=== PATIENT | female | born 1985 | race Caucasian/White ===

== ENCOUNTER 2025-02-21 11:12 | Emergency (ER) | payer OTHER, SELFPAY ==
[2025-02-21 11:18] VITALS: BP 151/106; PULSE 88; RESP 20; TEMP 37; O2SAT 100
--- OUTSIDE RECORDS SUMMARY | 2025-02-21 12:05 | XMS_ITS | Clinical Summary ---
Author Organization [facility] Address [address] [place] [address] Phone Care Team Providers Care Career Manager Name Role Phone Cristela Mendoza APRN, PRIMARY CARE PEDIATRICIAN Primary Care Provider + Allergies No known active allergies Medications metFORMIN (GLUCOPHAGE) 500 MG Tablet Take 500 mg by mouth 2 times daily (with meals). Active lisinopril (PRINIVIL, ZESTRIL) 10 MG Tablet Take 10 mg by mouth daily. Active ATORVASTATIN CALCIUM PO Take by mouth. Active Phentermine HCl 37.5 MG Tablet Take 37.5 mg by mouth every morning (before breakfast). Active Social History Tobacco Use Types Packs/Day Years Used Date Smoking Tobacco: Former Cigarettes Comments No Sex and Gender Information Value Date Recorded Sex Assigned at Not on file Legal Sex Female 11:27 PM CDT Gender Identity Not on file Sexual Orientation Not on file Last Filed Vital Signs Vital Sign Reading Time Taken Comments Blood Pressure 131/81 01/08/2016 6:16 PM CDT Pulse 136 01/08/2016 6:16 PM CDT Temperature 36.4 C (97.6 F) 01/08/2016 6:16 PM CDT Respiratory Rate - - Oxygen Saturation 95% 01/08/2016 6:16 PM CDT room air Inhaled Oxygen Concentration - - Weight 109.8 kg (242 lb) 01/08/2016 6:16 PM CDT Height 160 cm (5' 3 ) 01/08/2016 6:16 PM CDT Body Mass Index 42.87 01/08/2016 6:16 PM CDT Plan of Treatment Health Maintenance Due Date Last Done Comments Hepatitis C Virus (HCV) Screening 1984 TdaP Immunization 1984 Hepatitis B Immunization (1 of 3 - 19+ 3-dose series) 2003 Pap Smear 2005 Cervical Cancer Screening (CCS) 2014 HPV/Cotest 2014 Influenza Immunization (#1) 2024 SARS-COV-2 Immunization ( season) 2024 Discussion re Starting/Frequ ency of Mammograms 2024 Respiratory Syncytial Virus (RSV) Immunization (Adult) (1 - 1-dose 75+ series) 2059 Meningococcal Immunization (ACWY) Aged Out No longer eligible based on patient's age to complete this topic Pneumococcal Immunization Combined Aged Out No longer eligible based on patient's age to complete this topic Rotavirus Immunization Aged Out No lo nger eligible based on patient's age to complete this topic Insurance MEDICAID [employer] Care Teams Career Manager Relationship Specialty Start Date End Date Cristela Mendoza, ACCOUNT SERVICES SPECIALIST, PRIMARY CARE PEDIATRICIAN [address] [phone] PCP - General Advanced Practice Nurse 08/28/15
--- OUTSIDE RECORDS SUMMARY | 2025-02-21 12:05 | XMS_ITS | Continuity of Care Document ---
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 Professional No Information [address] [facility] [facility] [place] [id number], [place]. tel:[phone] Referring Provider: Lit Camargo [address] [place], [address] . tel:[phone] Family History Family Member Type Diagnosis Age At Onset No Information Payers Payer name Insurance type Covered republican ID Authorjessicaa titatiana(s) Medicaid [facility] [id number] Social History Type Description Quantity Date Captured Comments Sex Female Smoking Status No Information Chief Complaint And Reason For Visit No Information Reason For Referral Reason For Referral No Information History Of Present Illness Encounter Date Complaint History Of Prese nt Illness No Information Functional Status Date Functional Assessmen t No Information Instructions Date Instruction Additional Infor mation No Information Assessments Type Assessment Date No Information Patient Care Teams Name Effective Dates (start - stop) Status Members No Information
--- OUTSIDE RECORDS SUMMARY | 2025-02-21 12:05 | XMS_ITS | Data Portability ---
[facility] Address [address] [place] [address] Care Team Providers Care Manager Child Name Role Phone SHIRLENEMAGALY Orthopedic Surgeon JUANA ARSLAN OTHER PIETER GROVES Primary Care Provider [phone] Assessment No assessment recorded. Plan of Treatment Reminders Order Date Submit Date Provider Last Modified By Organization Details Last Modified Time Details Appointments None recorded . Lab PPD (purifie d protein derivati ve), skin test 2016 017 TIMOTHY In-Office Order, Internal Use Only DO Not Attach Compendium DO Not Attach Compendium, Do Not Delete/merge, [id number] 10:26:05 PPD (purifie d protein derivati ve), skin test 2016 017 TIMOTHY In-Office Order, Internal Use Only DO Not Attach Compendium DO Not Attach Compendium, Do Not Delete/merge, [id number] 10:06:29 vzv (varicel la-zoste r) igg+igm Ab, serum 2016 017 [facility], [address] [facility] [address], [address], 7 10:24:57 Referral None recorded . Procedures None recorded . Surgeries None recorded . Imaging None recorded . Medication Orders Tubersol 5 tub. unit/0.1 mL intrader mal injectio n solution 2016 017 [facility] [place], [address], [place], [address], 7 10:02:10 Tubersol 5 tub. unit/0.1 mL intrader mal injectio n solution 2016 017 ccampbellma Not available 10:02:10 phenterm ine 37.5 mg tablet 2016 017 [facility] [place], [facility] [address], [place], [address], 7 10:24:11 Patient TargetsNo targets recorded. Patient Instructions Encounter Date Encounter Id Patient Instructions Last Modified By Organization Details Last Modified Time 07/30/2017 [id number] Follow a well balanced diet using the USDA food guide pyramid. Start an exercise regimen that includes aerobic exercise for at least 30 minutes, 4 times a week. Do not severly restrict your diet. Healthy weight loss is 1-2 pounds per week. Recommended [employer]ODUCER f/u. Not available 07/30/2017 11:08:01 f/u 1 month to evaluate. Not available 07/30/2017 11:07:36 09/01/2017 [id number] Maintain a healthy weight. Avoid smoking. Participate in regular aerobic exercise (at least 30 minutes 4 days a week) Take medications as prescribed. Follow the DASH diet. Restrict sodium (less than 2000mg per day) Try to manage stress. Restrict alcohol consumption Follow a well balanced diet using the USDA food guide pyramid. Start an exercise regimen that includes aerobic exercise for at least 30 minutes, 4 times a week. Do not severly restrict your diet. Healthy weight loss is 1-2 pounds per week. Not available 09/01/2017 10:24:26 f/u 1 month. Not available 10:24:31 10/02/2017 [id number] When You Want to Lose Weight: Care Instructions [email or web address] Not available 10/02/2017 10:43:20 Follow a well balanced diet using the USDA food guide pyramid. Start an exercise regimen that includes aerobic exercise for at least 30 minutes, 4 times a week. Do not severly restrict your diet. Healthy weight loss is 1-2 pounds per week. Not available 10/02/2017 10:37:04 f/u 3 months. Not available 10:37:08 Reason for Referral None Reported. Results Created Date Observation Date Name Description Value Unit Range Abnormal Flag Note LastModifiedBy Organization Detail LastModifiedTime 09/29/20 17 10/01/2017 PPD (ashleigh fied prote in deriv ative ), skin test Result Negati ve Not Available In-Office Order Internal Use Only DO Not Attach Compendium DO Not Attach Compendium, Do Not Delete/merge, [id number] 09/29/2017 10:24:04 09/01/20 17 09/05/2017 PPD (ashleigh fied prote in deriv ative ), skin test Result NOT READ Not Available In-Office Order Internal Use Only DO Not Attach Compendium DO Not Attach Compendium, Do Not Delete/merge, [id number] 09/01/2017 10:08:02 Result Notes None recorded. Problems Name Problem SNOMED Code Status Onset Date Resolution Date Notes Provider Name and Address Organization Details Recorded Time Overweight 292681138 Active 2016 PIETER GROVES NP Attn: Carlos garcia,[address] [place], [address] [place] [facility] 7 10:36:55 Diabetes mellitus 67716916 Active Type 2 Priscilla White null, [place] - [facility] 6 17:25:47 Essential hypertension 41289272 Active Carlene Campos [place], [place] [facility] 6 11:26:22 Tobacco dependence syndrome 47633020 Active Carlene Campos [place], [place] [facility] 6 11:26:22 Morbid obesity 415923794 Active Carlene Campos [place], [place] [facility] 6 11:26:22 Skin lesion 27224359 Active EDWARD Mclean, [place] - [facility] 6 11:26:22 Migraine 92937219 Active EDWARD M[place], [place] - [facility] 6 11:26:22 Sleep disorder 48734310 Active 2014 MARCIN - CPap EDWARD M[place], [place] - [facility] 6 11:26:22 Injury of lower limb 190535692 Active EDWARD Mclean, [place] - [facility] 6 11:26:22 Anxiety 34034592 Active EDWARD Mclean, [place] - [facility] 6 11:26:22 Acute sciatica 791278308 Active EDWARD Mclean, [place] - [facility] 6 11:26:22 Candidiasis of skin 48226756 Active EDWARD Mclean, [place] - [facility] 6 11:26:22 Acute bronchitis 10252545 Active EDWARD M[place], [place] - [facility] 6 11:26:22 Hip joint painful on movement 386390503 Active EDWARD Mclean, - [facility] 6 11:26:22 Neuropathy 411474337 Active EDWARD Mclean, [place] - [facility] 6 11:26:22 Chronic back pain 566962209 Active EDWARD Mclean, - [facility] 6 11:26:22 Gastroesophage al reflux disease 950664086 Active EDWARD Mclean, [place] - [facility] 6 11:26:22 Hypercholester olemia 47167670 Active EDWARD Mclean, [place] - [facility] 6 11:26:22 Constipation 53192216 Active 2015 Priscilla Bartolojuanjo shivam, [place] - [facility] 6 17:25:14 Notes:No diuretics during pe rioperative phase (May?) preferred beta blockers and direct vasodilators 06/11/16 Laparoscopic sleeve gastredtomy with laparoscopic hiatal hernia repair with bio a mesh placement by Dr. Lieberman. Advised on diet, vitamins, supplements, exercise and support program. Problem Notes None recorded. Procedures Surgical History Date Name Laterality Status Provider Name and Address Organization Details Recorded Time Tonsillectomy completed KHUSHBU Rader [facility] 01/23/2015 09:54:42 Imaging Results None recorded. Procedure Notes None recorded. Medical Equipment None Reported. Allergies Allergen ID Allergen Name Allergen Category Reaction Reaction Severity Criticality Documentation Date Start Date Code Code System Note Provider Name and Address Organization Details Recorded Time 54413 Product containin g penicilli n (product) medicatio n hives Not available Not available 01/23/2015 53627 8001 SNOMED diffi culty aracely ralph RN [facility], [place] - [facility] 5 09:51:27 Medications Name Sig Start Date Stop Date Status Note LastModified by Organization Details LastModified Time Prescriptio n - Renewal 10/02 completed Not Available Not Available Not Available Prescriptio n - New 10/02 completed Not Available Not Available Not Available Prescriptio n - Prior Authorizati on Request active Not Available Not Available N ot Available ketoconazol e (bulk) powder Use a thin layer in affected areas which are moist and dark twice a day by topical route. 2014 active Not Available Not Available Not Avai lable bupropion HCl SR 150 mg tablet,12 hr sustained-r elease Take 1 tablet twice a day by oral route 1 with breakfast and 1 with lunch every day. active Not Available Not Available No t Available prednisone 10 mg tablet active Not Available Not Available Not Available nicotine 14 mg/24 hr daily transdermal patch Apply 1 patch every day by transderm al route. 10/22 completed Not Available Not Available Not Available atorvastati n 10 mg tablet TAKE ONE TABLET BY MOUTH EVERY DAY 10/22 completed Not Available Not Available Not Available azithromyci n 250 mg tablet 10/22 completed Not Available Not Available Not Available sumatriptan 100 mg tablet Take 1 tablet as needed by oral route at onset of WORKMAN may repeat after 2 hrs ; 2 tabs max in 24hours. active Not Available Not Available No t Available hydrocodone 5 mg-acetamin ophen 325 mg tablet 07/30 completed Not Available Not Available Not Available Ativan 1 mg tablet Take 1 to 2 tabs by oral route 30 minutes prior to MRI procedure . 2014 active Not Available Not Available Not Avai lable ondansetron HCl 4 mg tablet 10/22 completed Not Available Not Available Not Available prednisone 20 mg tablet Take by oral route with food - one with breakfast and one with lunch - cut back to one a day if blood sugar over 250 2014 active Not Available Not Available Not Avai lable Tubersol 5 tub. unit/0.1 mL intradermal injection solution Administe r .1ml interderm ally 10/02 completed Not Available Not Available Not Available phentermine 37.5 mg tablet Take 1 tablet(s) every day by oral route. active Not Available Not Available No t Available ciprofloxac in 500 mg tablet 07/30 completed Not Available Not Available Not Available triamcinolo ne acetonide 0.1 % topical cream active Not Available Not Available Not Available oxycodone-a cetaminophe n 5 mg-325 mg tablet active Not Available Not Available No t Available lancets active Not Available Not Avail able Not Available Humalog U-100 Insulin 100 unit/mL subcutaneou s solution 10/22 completed Not Available Not Available Not Available nystatin 100,000 unit/gram topical cream APPLY TO THE AFFECTED AREA(S) BY TOPICAL ROUTE 2 TIMES PER DAY 07/30 completed Not Available Not Available Not Available lisinopril 10 mg tablet TAKE ONE TABLET BY MOUTH EVERY DAY 10/22 completed Not Available Not Available Not Available naproxen 500 mg tablet,samantha yed release TAKE ONE TABLET BY MOUTH TWO TIMES A DAY WITH MEALS 10/22 completed Not Available Not Available Not Available ursodiol 300 mg capsule Take one capsule po bid 07/30 completed Not Available Not Available Not Available nicotine 21 mg/24 hr daily transdermal patch Apply 1 patch every day by transderm al route. 2015 active Not Available Not Available Not Avai lable gabapentin 300 mg capsule Take 1 capsule(s ) every day at bedtime till well-tole rated then add a 2nd cap a day and increase to 3 caps every days by oral route. 07/30 completed Not Available Not Available Not Available omeprazole 20 mg capsule,del ayed release Take one capsule bid active Not Available Not Available No t Available hydroxyzine HCl 25 mg tablet active Not Available Not Available Not Available insulin syringe U-100 with needle 1 mL 30 gauge x 05/04 completed Not Available Not Available Not Available timolol maleate 0.5 % eye drops active Not Available Not Available Not Available ketoconazol e 2 % topical cream USE A THIN LAYER IN AFFECTED AREAS WHICH ARE MOIST AND DARK TWICE A DAY BY TOPICAL ROUTE. active Not Available Not Available No t Available fluticasone propionate 50 mcg/actuati on nasal spray,suspe nsion 10/22 completed Not Available Not Available Not Available metformin ER 500 mg tablet,exte nded release 24 hr Take 2 tablets twice a day by oral route with meals for 30 days. 10/22 completed Not Available Not Available Not Available clotrimazol e 1 % topical cream APPLY TO AFFECTED AREA(S) TWO TIMES A DAY TO CLEAN AND DRY SKIN FOR 28 DAYS active Not Available Not Available No t Available naproxen 500 mg tablet active Not Available Not Available Not Available dorzolamide 2 % eye drops active Not Available Not Available Not Available nicotine 7 mg/24 hr daily transdermal patch active Not Available Not Available Not Available Ventolin HFA 90 mcg/actuati on aerosol inhaler Inhale 2 puffs every 4-6 hours by inhalatio n route as needed. 10/22 completed Not Available Not Available Not Available azithromyci n 500 mg tablet active Not Available Not Available Not Available OneTouch Verio test strips 2014 active Not Available Not Available Not Avai lable OneTouch Delica Lancets 30 gauge active Not Available Not Available Not Available Multi Vitamin 1 PO QD active Not Available Not Available Not Available Vitals Date Recorded Body height Provider Name an d Address Organization Details Last Updated DateTime 09/29/2017 162.56 cm Berta Yarbrough [facility] 2016 10:23:18 Date Recorded Body height Body mass index (BMI) Body weight Oxygen saturation Oxygen saturation in Arterial blood by Pulse oximetry Heart rate Systolic blood pressure Diastolic blood pressure Provider Name and Address Organization Details Last Updated DateTime 7 162.56 cm 26.8 kg/m2 49796.8 1 g 98 % 98 % 91 /min 136 mm[Hg] 78 mm[Hg] Berta Yarbrough MA [facility] 7 10:04:08 Date Recorded Body height Provider Name an d Address Organization Details Last Updated DateTime 05/01/2017 160.02 cm Priscilla White [facility] 05/01/2017 09:56:49 Date Recorded Body height Body mass index (BMI) Body weight Oxygen saturation Oxygen saturation in Arterial blood by Pulse oximetry Heart rate Systolic blood pressure Diastolic blood pressure Provider Name and Address Organization Details Last Updated DateTime 160.02 cm 28.6 kg/m2 94817.1 7 g 100 % 100 % 87 /min 134 mm[Hg] 88 mm[Hg] Berta Yarbrough MA [facility] 7 09:54:39 Date Recorded Body height Body mass index (BMI) Body weight Oxygen saturation Oxygen saturation in Arterial blood by Pulse oximetry Heart rate Systolic blood pressure Diastolic blood pressure Provider Name and Address Organization Details Last Updated DateTime 7 162.56 cm 26.8 kg/m2 71259.4 1 g 99 % 99 % 91 /min 126 mm[Hg] 84 mm[Hg] Carlene Campos MA [facility] 7 09:56:41 Social History Question Answer Notes LastModified by Organizat ion Details LastModified Time Tobacco Smoking Status Former Smoker Quit 12-19-15 Carlene Campos MA [facility] 01/01/2016 10:07:03 What Is Your Level Of Alcohol Consumption? None [email or web address] Information not available 01/23/2015 What Is Your Level Of Caffeine Consumption? Occasional Information not available 06/30/2015 How Much Tobacco Do You Chew? None Information not available 06/30/2015 Are You Currently Employed? No Information not available 06/30/2015 What Type Of Diet Are You Following? SPECIFIC Weight [employer] Information not available 06/30/2015 Which Illicit Or Recreational Drugs Have You Used? None Information not available 06/30/2015 Are There Any Guns Present In Your Home? No Information not available 06/30/2015 What Was The Date Of Your Most Recent Tobacco Screening? 09/01/2017 Information not available 05/13/2019 How Many Children Do You Have? 2 Information not available 06/30/2015 Seat Belts Used Routinely Yes Information not available 06/30/2015 Smoke Alarm In Home Yes Information not available 06/30/2015 At What Age Did You Start Smoking Tobacco? 15 Information not available 06/30/2015 How Much Tobacco Do You Smoke? No rreiter Information not available 01/01/2016 General Stress Level Medium Information not available 06/30/2015 Do You Use Sunscreen Routinely? No Information not available 06/30/2015 How Many Years Have You Smoked Tobacco? 15 [email or web address] Information not available 01/23/2015 Sex: Unknown Functional Status Question Answer Note LastModified by Organizat ion Details LastModified Time Are you able to care for yourself? Yes Information not available 06/30/2015 What is your exercise level? Occasional Information not available 06/30/2015 Mental Status None recorded. Family History Relationship Description Onset Age of this Age Resolved Age Notes LastModified by Organization Details LastModified Time Mother Disorder of thyroid gland rreiter Not available 2015 12:18:34 Mother Hypertensive disorder rreiter Not available 2015 12:18:34 Father Cerebrovascu lar accident rreiter Not available 12:18:34 Medical History Condition Response Diabetes Y Obesity Y High Blood Pressure Y Constipation Y Sleep Apnea Y GERD/Reflux Y High Cholesterol Y COPD Y Asthma Y Gynecological History Statement/Question Response Current Control Method IUD Obstetrics History GPAL:G 0 P 0 0 0 0 Immunizations Vaccine Type Date Status Note Provider Nam e and Address Organization Details Recorded Time Influenza, split virus, quadrivalent, preservative 7 completed Not Available [facility] 11/06/2019 02:33:02 Hep B, adult 7 completed Not Available [facility] 11/06/2019 02:33:52 Hep B, adult 7 completed Not Available [facility] 11/06/2019 02:33:52 Hep B, adult 7 completed Not Available [facility] 11/06/2019 02:45:29 Influenza, split virus, quadrivalent, PF 7 completed Not Available [facility] 11/06/2019 02:34:22 Tdap 7 completed Not Available [facility] 11/06/2019 02:46:09 Influenza, split virus, quadrivalent, PF 5 completed Not Available [facility] 11/06/2019 02:32:08 Past Encounters Encounter ID Performer Location Encounter Start Date Encounter Closed Date Diagnosis/Indication Diagnosis SNOMED-CT Code Diagnosis ICD10 Code Diagnosis Note [id number] STEPHANIE Owen-ADAMS [facility] [address] [place] [address] 01/23/2015 09:43:03 01/24/2015 14:08:16 Diabetes mellitus 45438100 Essential hypertension 82306009 Tobacco de pendence syndrome 00184026 Morbid obesity 513779854 Skin lesion 31876850 rig ht forehead [id number] Cristela Reji [facility] [address] [place] [address] 02/24/2015 09:36:37 03/08/2015 14:00:05 Essential hypertension 54551530 Diabetes mellitus 58098071 Migraine 13103881 Sleep disorder 99361923 Morbid obesity 244589974 [id number] Cristela Mendoza [facility] [address] [place] [address] 04/28/2015 09:49:30 05/03/2015 17:13:28 Diabetes mellitus 00999836 Essential hypertension 24150858 Morbid obesity 025154684 [id number] Igor Elliott MD [facility] [address] [place] [address] 05/29/2015 09:52:42 05/30/2015 12:08:57 Injury of lower limb 482837411 left lower leg injury Impaired mobility 53140637 Morbid obesity 688253652 [id number] Igor Elliott MD [facility] [address] [place] [address] 06/30/2015 09:45:42 07/05/2015 13:09:16 Diabetes mellitus 49192870 Morbid obesity 407893667 Injury of lower limb 272577647 left lower leg injury - improving [id number] Cristela Mendoza [facility] [address] [place] [address] 07/28/2015 09:41:23 08/01/2015 11:24:07 Diabetes mellitus 19337343 E11.9 Essential hypertension 35232268 I10 Morbid obesity 801718579 E66.01 Needs infl uenza immunization 634681838 Z28.3 [id number] Cristela Mendoza [facility] [address] [place] [address] 08/25/2015 09:47:31 08/29/2015 15:32:35 Diabetes mellitus 16714142 E11.9 Acute sciatica 801429045 M54.31 right low back to buttocks pain Morbid obesity 470534373 E66.01 Candidiasis of skin 4988 3006 B37.2 under breasts and abdominal skin folds [id number] NANCY Owen [facility] [address] [place] [phone] 09/29/2015 09:38:51 10/05/2015 15:10:06 Morbid obesity 722614607 E66.01 Candidiasis of skin 4988 3006 B37.2 under breasts and abdominal skin folds Acute sciatica 423583360 M54.31 right low back to buttocks pain Diabetes mellitus 841502 09 E11.9 [id number] Igor Elliott MD [facility] [address] [place] [address] 11/01/2015 11:26:15 11/08/2015 17:10:37 Morbid obesity 538527554 E66.01 Diabetes mellitus 697691 09 E11.9 Essential hypertension 20396355 I10 [id number] Igor Elliott MD [address] [address] 12/04/2015 11:08:36 12/05/2015 09:35:26 Morbid obesity 971512179 E66.01 Acute bronchitis 4957854 2 J20.9 F17.290 Essential hypertension 50507721 I10 Diabetes mellitus 248915 09 E11.9 [id number] Igor Elliott MD [address] [address] 01/01/2016 09:50:46 01/09/2016 10:47:18 Morbid obesity 575008687 E66.01 Diabetes mellitus 898998 09 E11.9 Hip joint painful on movement 546699085 M25.551 M51.[address] Sprague Ex-smoker 6149571 Z87.89 1 Quit December 19, 2015 [id number] Igor Elliott MD [facility] [address] [place] [address] 01/31/2016 16:45:47 02/01/2016 12:22:50 Morbid obesity 859492574 E66.01 Essential hypertension 59765658 I10 Diabetes mellitus 693733 09 E11.9 Ex-smoker 5878271 Z87.89 1 Quit December 19, 2015 [id number] Igor Elliott MD [address] [address] 03/05/2016 09:45:55 03/08/2016 17:11:45 Morbid obesity 230504740 E66.01 Ex-smoker 8903422 Z87.89 1 Has started smoking again, after Quitting December 19, 2015 Diabetes mellitus 692338 09 E11.9 [id number] Igor Elliott MD [facility] [address] [place] [address] 04/10/2016 11:41:35 04/11/2016 13:21:52 Morbid obesity 509258610 E66.01 Neuropathy 257034711 G62 .9 bilat feet to knees burning, tingling feel wet - informed per Dr Sprague Diabetes mellitus 449101 09 E11.9 very good control last A1C = 6.6 Chronic back pain 984620 [address] Sprague [id number] Igor Elliott MD [facility] [address] [place] [address] 05/08/2016 12:15:03 05/09/2016 19:31:37 Morbid obesity 781397423 E66.01 Chronic back pain 144484 [address] Spargue Diabetes mellitus 690818 09 E11.9 very good control last A1C = 6.6 Essential hypertension 66880126 I10 Tobacco de pendence syndrome 95186050 F17.290 [id number] Igor Elliott MD [facility] [address] [place] [address] 06/10/2016 12:06:14 06/11/2016 10:31:15 Diabetes mellitus 49138766 E11.9 05/2016 - on insulin now instead of metformin pre-surgic al very good control last A1C = 6.6 Morbid obesity 286440671 E66.01 Anxiety 30259558 F41.9 [id number] José Miguel Alejandra MD [facility] [address] [place] [address] 10/22/2016 15:39:51 10/25/2016 11:52:41 Essential hypertension 82091716 I10 Diabetes mellitus 202513 09 E11.9 05/2016 - on insulin now instead of metformin pre-surgic al very good control last A1C = 6.6 Body mass index 30+ - obesity 334170012 Z68.35 Needs infl uenza immunization 921090653 Z23 Requires c ourse of hepatitis B vaccination 610681810 Z23 Long-term drug therapy 918107222 Z79.899 Complainin g of hair loss 549105569 R23.8 Depression screening 171 597419 Z13.89 negative [id number] José Miguel Alejandra MD [facility] [address] [place] [address] 12/23/2016 10:56:20 12/25/2016 10:41:13 Increased body mass index 08186058 Z68.32 Diabetes mellitus 415294 09 E11.9 12/2016 - on no DM meds now sp bariatric surgery and great weight loss05/2016 - on insulin now instead of metformin pre-surgic al very good control last A1C = 6.6 Requires c ourse of hepatitis B vaccination 507271658 Z23 12/23/2016 = no. 2 vaccine [id number] PIETER GROVES NP [facility] [address] [place] [phone] 05/01/2017 09:45:31 05/05/2017 10:14:15 Adult health examination 708809270 Z00.00 [id number] José Miguel Alejandra MD [facility] [address] [place] [phone] 07/30/2017 09:43:52 07/31/2017 11:10:23 Morbid obesity 237508404 E66.01 Body mass index 25-29 - overweight 437900660 Z68.28 Needs infl uenza immunization 479229837 Z23 [id number] José Miguel Alejandra MD [facility] [address] [place] [address] 09/01/2017 09:45:34 09/03/2017 12:04:18 Adult health examination 730266496 Z00.00 Tuberculos is screening 319407012 Z11.1 Body mass index 25-29 - overweight 151697685 Z68.26 Essential hypertension 18808138 I10 [id number] José Miguel Alejandra MD [place] [address] 09/29/2017 10:22:13 09/30/2017 17:44:52 Tuberculosis screening 682527133 Z11.1 [id number] José Miguel Alejandra MD [place] [address] 5 10/02/2017 09:56:04 10/06/2017 11:36:13 Overweight 941666294 E66.3 Health Concerns Section Related Observation LastModified by Organization Detai ls LastModified Time None Recorded Concern Status LastModified by Organization Details LastModified Time None Recorded Advance Directives Directive None Recorded Payers Encounter Date Sequence Insurance Name Policy Number Policy Love Covered Member ID Love Member ID Guarantor Name 05/01/2017 1 [facility] PRIOR TO 04/19/2021 (MEDICAID REPLACEMENT - HMO) Svetlana Gurpreet [id number] Svetlana Gurpreet 07/30/2017 1 [facility] PRIOR TO 04/19/2021 (MEDICAID REPLACEMENT - HMO) Svetlana Gurpreet [id number] Svetlnaa Gurpreet 09/01/2017 1 [facility] PRIOR TO 04/19/2021 (MEDICAID REPLACEMENT - HMO) Svetlana Gurpreet [id number] Svetlana Gurpreet 09/29/2017 1 [facility] PRIOR TO 04/19/2021 (MEDICAID REPLACEMENT - HMO) Svetlana Gurpreet [id number] Svetlana Gurpreet 10/02/2017 1 [facility] PRIOR TO 04/19/2021 (MEDICAID REPLACEMENT - HMO) Svetlana Gurpreet [id number] Svetlana Gurpreet Notes Date Note Type Note Provider Name and Address Organization Details Recorded Time 07/30/2017 text/html Pt states that s he has plateaued in her weight loss. She is continuing strong diet and intense exercise. PIETER RGOVES NP Attn: [address] [place], [address], [facility] 07/30/2017 12:27:09 09/01/2017 text/html Pt here for 1 month f/u on phenteremine. States she is doing well, denies any adverse side effects. Continues to work on diet and exercise. Needs varicella titer, tetanus, and 2 step tb test for school. PIETER GROVES NP Attn: [address] [place], [address], [facility] 09/01/2017 10:26:43 10/02/2017 text/html Pt here for 1 month f/u. States she has been taking phenteremine as rx'd. States she had a bad month d/t stress and holidays. She is working more diligently to control her diet and exercise. PIETER GROVES NP Attn: [address] [facility], [place], [address], [facility] 10/02/2017 10:37:25 OBGyn Episode No OBEpisode recorded.
--- OUTSIDE RECORDS SUMMARY | 2025-02-21 12:06 | XMS_ITS | Continuity of Care Document ---
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 [address] [facility], [place], [facility] [place] [address], [place]. tel:[phone] Referring Provider: Lit Camargo [address] [place], [address] . tel:[phone] Family History Family Member Type Diagnosis Age At Onset No Information Payers Payer name Insurance type Covered green party ID Authorjessicaa titatiana(s) Medicaid [facility] [id number] Social History Type Description Quantity Date Captured [...]
--- NOTE | 2025-02-21 12:19 | ED_ITS ---
HPI - Extremity Problem General Chief complaint: Extremity Problem,Nontraumatic Stated complaint: Right Hand Swelling Source: patient Mode of arrival: ambulatory Limitations: no limitations History of Present Illness HPI Narrative: 39 y/o female presented for c/o pain, redness, swelling and wounds to the right hand. Says the first wound developed about 3 days ago to the outside of the hand, and now has several painful draining blisters to the top of the hand. Has applied neosporin to the sites. Pt reports hunting for mushrooms then walking around in [place] for [place] days prior to onset. denies IVDA. denies numbness, tingling or weakness. Related Data Allergies Allergy/AdvReac Type Severity Reaction Status Date / Time Penicillins Allergy Unknown Unknown Verified 02/21/25 11:24 Review of Systems Review of Systems: CONSTITUTIONAL: Denies body aches, fever, chills, or sweats. EYES: Denies visual changes, redness, or discharge. ENT: Denies rhinorrhea, congestion CARDIOVASCULAR: Denies chest pain, palpitations, or edema. RESPIRATORY: Denies cough or dyspnea. GASTROINTESTINAL: Denies abdominal pain, nausea, vomiting, or diarrhea. SKIN: per HPI MUSCULOSKELETAL: Denies back pain, joint pain, or myalgia. NEUROLOGIC: Denies headache, numbness, tingling, or weakness. FOR[facility]LY [facility] Social History Social History Smoking status: Current every day smoker Alcohol intake: never Comments At time of signature, I have reviewed and agree with nursing past medical, surgical, social and family history unless otherwise noted. Please see nursing chart for further information. There is no relevant family history pertinent to the presenting complaint Exam Narrative: GENERAL: Well-appearing HEAD: Normocephalic, atraumatic. EYES: conjunctivae clear, and EOMI. ENT: Mucous membranes moist. Oropharynx without edema, erythema or lesions. NECK: Supple. No lymphadenopathy CHEST: Clear to auscultation. HEART: Regular rate and rhythm. SKIN: Warm, dry. Right hand large amount of swelling and erythema c/w cellulitis with 1.5cm pustule to 5th metacarpal, 1.5cm and 1cm pustules to middle and proximal phalanx of the 3rd digit, and 1cm pustule to dorsal 2nd metacarpal with purulent drainage, tender. Decreased ROM to all digits due to swelling. NEURO: Alert and oriented x3. Course Course Emergency Course: Patient is aware of diagnosis, understands and agrees to treatment plan. Anticipatory guidance given. Patient agrees to follow-up as directed and is aware of reasons to seek care at the emergency department. Portions of this record may have been created with voice recognition software Level of Care: Express Care Visit Vital Signs Vital signs: Vital Signs Temperature 98.6 F 02/21/25 11:18 Pulse Rate 88 02/21/25 11:18 Respiratory Rate 20 02/21/25 11:18 Blood Pressure 151/106 H 02/21/25 11:18 Pulse Oximetry 100 02/21/25 11:18 Oxygen Delivery Room Air 02/21/25 11:18 Temperature 98.6 F 02/21/25 11:18 Pulse Rate 88 02/21/25 11:18 Respiratory Rate 20 02/21/25 11:18 Blood Pressure 151/106 H 02/21/25 11:18 Pulse Oximetry 100 02/21/25 11:18 Oxygen Delivery Room Air 02/21/25 11:18 Reviewed MDM - Extremity (Nontraumatic) MDM Narrative Medical decision making narrative: Pt presented for c/o pain, redness, swelling and wounds to the right hand worsening x3 days. Pt's story is overall difficult to follow, she denies IVDA. During encounter, 9 rings were removed from the right hand, 3 of which were cut using the electric ring remover. Pt tolerated well. Pt tearful throughout encounter. Advised at length reasons for ER transfer. Pt revuses ER transfer at this time, will send po abx, though she is advised this is not the recommended treatment. v/u. states she will go to the ER if it worsens. The patient is clinically sober, AA&Ox3. The patient has demonstrated concrete thinking/reasoning, has maintained an buffer automatic/reasonable conversation, appears to have intact insight/judgment/reason and therefore has capacity to make decisions. Given the patients presentation, we communicated our concern for right hand cellulitis in laymans terms. The patient verbalized an understanding. The patient is aware the evaluation is incomplete & many troublesome conditions have not been r/o. We have discussed the need for further ED evaluation. We have discussed the range of possible dx, potential testing & treatment options. Our discussions included the potential outcomes of leaving AMA, including worsening of their condition, becoming permanently disabled/in pain/critically ill, or . Despite these efforts, we were unable to convince the pt to go to the ER. We have attempted to offer tx/rx/guidance for any dangerous conditions which are most likely and/or dangerous. We have answered all questions and have implored the patient to go to ER [facility] to complete the w/u. A staff member witnessed the patient consenting to AMA. Differential Diagnosis Differential diagnosis: Likely cellulitis, superficial thrombophlebitis and other ( Viral exanthema, contact dermatitis, allergic dermatitis, eczema, urticaria, insect bites, impetigo, tinea, folliculitis) Discharge Plan Discharge Clinical Impression: Cellulitis of hand, right Patient Disposition: Left Against Medical Advice Condition: Stable Instructions: Antibiotic Form, Cellulitis (ED) Additional Instructions: You were advised to transfer to the ER for further evaluation and management of the hand wounds, and you decline at this time. You were made aware of the risk of refusal including worsening of your condition and . You can go to the ER any time if you change your mind. Keep the area clean and dry - cleanse with warm water and mild soap and allow to fully dry. Ok to apply neosporin to the site Keep it covered while draining Take the antibiotic as directed Patient Language: Japanese Prescriptions: New doxycycline hyclate 100 mg tablet 100 mg PO BID 10 Days Qty: 20 0RF sulfamethoxazole-trimethoprim [Bactrim DS] 800-160 mg tablet 1 tablet PO Q12H 7 Days Qty: 14 0RF Follow-up/Referrals: Gris Verde MD [Physician] - UNKNOWN,DOCTOR [Primary Care Provider] -
--- NOTE | 2025-02-21 12:36 | PC.NURSE ---
1200 Pt with multiple rings on each fingers. Swelling to fingers making it hard to remove rings. 3 rings removed using soap. 3 rings cut off with permission of patient. 3 additional rings removed with lube gel and soap. Pt given a total of 9 rings 3 cut off and placed in cup for pt to take home.
== END 2025-02-21 12:33 | disposition left against medical advice (07) ==
PROVIDERS: Emergency Provider Nurse Practitioner Family
DX: L03.113 Cellulitis of right upper limb (principal); F17.200 Nicotine dependence, unspecified, uncomplicated
CPT/HCPCS: 99213; G0463